=== PATIENT | female | born 1935 | race Caucasian/White ===

== ENCOUNTER 2022-01-21 22:22 | Inpatient (IN) | payer MEDICARE ==
[2022-01-21 23:44] LABS: ESTIMATED GFR 52 (>60)
[2022-01-21 23:45] LABS: TROPONIN I HIGH SENSITIVITY 18.8 pg/mL (<=60.3)
[2022-01-22] MEDS ORDERED: NS + KCl 20mEq/L 1,000 ML IV SCH (00:15)
[2022-01-22 00:44] LABS: CORONAVIRUS COVID-19 NAA NEGATIVE (NEGATIVE)
[2022-01-22] MEDS ORDERED: Acetaminophen 650 MG Supp RECTAL PRN (01:38)
[2022-01-22] MEDS ORDERED: Sodium Chloride 0.9% 1,000 ML IV SCH (01:45)
[2022-01-22 04:56] LABS: ESTIMATED GFR > 60 (>60)
[2022-01-22] MEDS: Sodium Chloride 0.9% 1,000 ML IV SCH (15:41)
[2022-01-23 05:36] LABS: ESTIMATED GFR > 60 (>60)
[2022-01-23] MEDS ORDERED: Potassium Chloride Riders 20 MEQ in Premix Bag 1 BAG IV ONE (06:11)
[2022-01-23] MEDS ORDERED: Lidocaine 1% 5 ML VIAL INJECT ONE (06:12)
[2022-01-23] MEDS ORDERED: POTASSIUM CHLORIDE RIDERS IV ONE (09:30)
[2022-01-23] MEDS ORDERED: SODIUM CHLORIDE 0.9% IV ONE (09:30)
[2022-01-23] MEDS: Sodium Chloride 0.9% 1,000 ML IV SCH (09:45)
[2022-01-24 04:36] LABS: ESTIMATED GFR > 60 (>60)
[2022-01-24] MEDS: Sodium Chloride 0.9% 1,000 ML IV SCH (05:11)
[2022-01-24] MEDS ORDERED: Potassium Chloride Riders 20 MEQ in Premix Bag 1 BAG IV ONE ×2 (06:42→08:45)
[2022-01-24] MEDS: Potassium Chloride 20 MEQ Tab.ER PO SCH (20:23)
[2022-01-25 05:21] LABS: ESTIMATED GFR > 60 (>60)
[2022-01-25] MEDS: Potassium Chloride 20 MEQ Tab.ER PO SCH ×2 (09:19→21:20)
[2022-01-26] MEDS: Sodium Chloride 0.9% 1,000 ML IV SCH (04:19)
[2022-01-26] MEDS: Potassium Chloride 20 MEQ Tab.ER PO SCH (09:44)
[2022-01-26] MEDS ORDERED: Bisacodyl 10 MG Supp RECTAL PRN (09:45)
[2022-01-26] MEDS: Morphine 10 MG/0.5 ML Oral Syringe SL PRN (09:57)
[2022-01-27] MEDS: Morphine 10 MG/0.5 ML Oral Syringe SL PRN (08:01)
[2022-01-27] MEDS: Potassium Chloride 20 MEQ Tab.ER PO SCH (10:29)
[2022-01-28 06:40] LABS: ESTIMATED GFR > 60 (>60)
[2022-01-28] MEDS: Morphine 10 MG/0.5 ML Oral Syringe SL PRN (08:22)
[2022-01-28] MEDS: Potassium Chloride 20 MEQ Tab.ER PO SCH (10:30)
== END 2022-01-29 11:00 | disposition home or self-care (01) | DRG 948 ==
LOC: JP.ED 22:22 → JP.MS 01-22 01:38
PROVIDERS: ADMIT Family Medicine; ATTEND Hospitalist
DX: R40.0 Somnolence (principal); R53.83 Other fatigue; R41.82 Altered mental status, unspecified; W19.XXXA Unspecified fall, initial encounter; E87.6 Hypokalemia; G30.9 Alzheimer's disease, unspecified; F02.80 Dementia in other diseases classified elsewhere, unspecified severity, without behavioral disturbance, psychotic disturbance, mood disturbance, and anxiety; I10 Essential (primary) hypertension; Z66 Do not resuscitate; Z20.822 Contact with and (suspected) exposure to COVID-19; K21.9 Gastro-esophageal reflux disease without esophagitis; E03.9 Hypothyroidism, unspecified; R33.9 Retention of urine, unspecified; E86.0 Dehydration; Z85.850 Personal history of malignant neoplasm of thyroid; Z79.82 Long term (current) use of aspirin; Z79.890 Hormone replacement therapy; Z79.899 Other long term (current) drug therapy
CPT/HCPCS: 0241U; 36415; 51702; 70450; 80048; 80053; 81001; 82550; 84132; 84484; 85025; 85027; 96365; 97110; 97161; 97535; 99285; 99233; 99239; A9270-GY; J3480; J3490; J7030; U0002